=== PATIENT | male | born 1950 | race Caucasian/White ===

== ENCOUNTER 2018-09-24 11:50 | Emergency (ER) | payer OTHER ==
[~2018-09-24] VITALS: Ht 182.9 cm; Wt 77.0 kg
[2018-09-24] VITALS (12 sets, daily range): BP systolic 131–163; BP diastolic 66–90; PULSE 70–80; RESP 14–21; Ht 182.9 cm; Wt 77.0 kg
[~2018-09-24 11:50] MED LIST: HEPARIN 25000 UNIT/250 ML ONE
[2018-09-24] MEDS ORDERED: ASPIRIN 81 MG TAB PO STA (11:53)
[2018-09-24] MEDS ORDERED: SOD CHLORIDE 0.9% 1,000 ML IV STA (11:53)
[2018-09-24] MEDS ORDERED: ALTEPLASE 100 MG INJ IV* ONE ×2 (12:00)
[2018-09-24] MEDS ORDERED: SOD CHLORIDE 0.9% 100 ML ONE (12:00)
[2018-09-24] MEDS ORDERED: IOHEXOL 300MG/ML 150 ML BTL ONE (12:00)
[2018-09-24] MEDS ORDERED: SOD CHLORIDE 0.9% 50 ML IV ONE (12:00)
[2018-09-24] MEDS ORDERED: ALTEPLASE (tPA) 1 MG/ML BOLUS SYG IV* ONE ×2 (12:00)
--- NOTE | 2018-09-24 12:31 | STROKE ---
Date/Time of Note Date/Time of Note DATE: 09/24/18 TIME: 15:25 Patient Information General Arrival Date Age 68 Gender male Weight NIH Stroke Scale NIH Stroke Scale Date/Time Recorded DATE: 09/24/18 TIME: 15:25 Submitted By Flo Donnelly t-PA Imaging Review Date/Time Imaging Reviewed DATE: 09/24/18 TIME: 15:25 t-PA Administration Weight Recommedation submitted by Flo Donnelly Recommendations Recommendation last spoke to the patient and he was speaking normally at 10:30. subsequently became acutely aphasic. has not had any recent surgeries, is not on anticoagulation, and has no bleeding problems. I recommended to the patient's that he receive tPA. I explained that tPA improves chances for a full recovery and does not guarantee full recovery. I also stated that some who do not receive tPA still enjoy a full recovery. I further stated a 6% risk of symptomatic hemorrhage with tPA. The patient's consented for IV tPA at 12:20. FLO DONNELLY MD Sep 24, 2018 12:30
--- NOTE | 2018-09-24 12:37 | ERD ---
ER Documentation Chief Complaint Chief Complaint pt became verbal incomprehensible around [address] a med ctr HPI This is a 68-year-old man brought in by EMS for generalized confusion and aphasia beginning about an hour and a half prior to arrival 10:30 AM. states she last spoke to him at about 10:30 AM and noticed a change in speech and then difficulty speaking. She was driving him to the hospital for evaluation but got pulled over by tobacco blender and tobacco blender called EMS who transported him here. Patient has had no recent fevers or chills, no recent complaints of headache, no blurry vision, no vomiting or diarrhea, no complaints of chest pain or shortness of breath. Patient has had no history of GI bleeding or recent surgeries, no history of stroke, no new meds. ROS All systems reviewed and are negative except as per history of present illness. Medications Home Meds Reported Medications Albuterol Sulfate* (Ventolin HFA*) 18 Gm Hfa.aer.ad, 2 PUFF INHALATION Q4H, #1 INHALER 09/24/18 Ciclesonide (Alvesco) 160 Mcg/Act - 6.1 Gm - 60 Act Hfa.aer.ad, 160 MCG INHALATION BID, #1 INHALER 09/24/18 Omeprazole* (Omeprazole*) 20 Mg Capsule.dr, 20 MG PO DAILY, #30 CAP 09/24/18 Colchicine* (Colcrys*) 0.6 Mg Tablet, 0.6 MG PO DAILY PRN for GOUT, TAB 09/24/18 Allopurinol* (Allopurinol*) 100 Mg Tablet, 100 MG PO BID, TAB 09/24/18 Levothyroxine Sodium* (Levoxyl*) 25 Mcg Tablet, 25 MCG PO BEFORE BREAKFAST, #30 TAB 09/24/18 Allergies Allergies: Coded Allergies: No Known Allergy (Unverified , 09/24/18) PMhx/Soc Hypothyroidism FmHx Family History: No diabetes Physical Exam Vitals Vital Signs Date Temp Pulse Resp B/P (MAP) Pulse Ox O2 O2 Flow FiO2 Time Delivery Rate 09/24/18 78 17 162/90 100 Room Air 13:00 (114) 09/24/18 98.2 76 18 163/86 100 Room Air 12:45 (111) 09/24/18 80 15 157/89 100 Room Air 12:35 (111) 09/24/18 86 17 154/87 100 Room Air 12:20 (109) 09/24/18 82 17 176/79 100 Room Air 12:15 (111) 09/24/18 97.1 81 18 178/76 98 11:50 (110) Physical Exam GENERAL: Well-developed, well-nourished, well-hydrated, agitated, afebrile HEENT: Moist mucous membranes, pink conjunctiva, no cervical spine tenderness or step-off deformities, no goiter, no jaundice or icterus, extraocular movements intact without pain. No submandibular induration, and no pharyngeal erythema NEURO: Patient appears confused, moving all extremities, pupils equal round reactive to light, no facial asymmetry but patient is aphasic and unable to follow commands or speak CARDIAC: Regular rate and rhythm, no murmurs rubs or gallops LUNGS: Clear bilaterally no wheezing crackles or stridor ABDOMEN: Soft nontender, no guarding, no rigidity, no rebound, no psoas sign no obturator sign. Normoactive bowel sounds SKIN: Warm and dry to touch, no abrasions, contusions, or hematomas, no lacerations, no ecchymosis, no target lesions, and without ulcers EXTREMITIES: No clubbing cyanosis or edema, calves are bilaterally symmetrical, no Homans sign, no popliteal cord sign. Distal pulses equal and bilateral PSYCH: Agitated Result Diagram: 09/24/18 1203 09/24/18 1203 Results 24 hrs Laboratory Tests Test 09/24/18 12:02 09/24/18 12:03 09/24/18 12:36 Hemoglobin A1c 6.0 % White Blood Count 7.5 10^3/ul Red Blood Count 5.50 10^6/ul Hemoglobin 15.4 g/dl Hematocrit 46.0 % Mean Corpuscular Volume 83.6 fl Mean Corpuscular Hemoglobin 28.0 pg Mean Corpuscular 33.5 g/dl Hemoglobin Concent Red Cell Distribution Width 13.2 % Platelet Count 210 10^3/UL Mean Platelet Volume 9.5 fl Immature Granulocytes % 0.300 % Neutrophils % 54.1 % Lymphocytes % 36.5 % Monocytes % 7.1 % Eosinophils % 1.3 % Basophils % 0.7 % Nucleated Red Blood Cells % 0.0 /100WBC Immature Granulocytes # 0.020 10^3/ul Neutrophils # 4.0 10^3/ul Lymphocytes # 2.7 10^3/ul Monocytes # 0.5 10^3/ul Eosinophils # 0.1 10^3/ul Basophils # 0.1 10^3/ul Nucleated Red Blood Cells # 0.0 10^3/ul Prothrombin Time 13.5 Sec Prothrombin Time Ratio 1.1 INR International Normalized Ratio 1.02 Activated Partial Thromboplast 31.5 Sec Time Sodium Level 140 mmol/L Potassium Level 4.3 mmol/L Chloride Level 106 mmol/L Carbon Dioxide Level 22 mmol/L Anion Gap 12 Blood Urea Nitrogen 17 mg/dl Creatinine 1.25 mg/dl Est Glomerular Filtrat Rate mL/min 57 mL/min Glucose Level 141 mg/dl Calcium Level 10.0 mg/dl Total Bilirubin 0.6 mg/dl Direct Bilirubin 0.00 mg/dl Indirect Bilirubin 0.6 mg/dl Aspartate Amino Transf (AST/SGOT) 20 IU/L Alanine 17 IU/L Aminotransferase (ALT/SGPT) Alkaline Phosphatase 74 IU/L Creatine Kinase 51 IU/L Creatine Kinase Index 1.2 Creatinine Kinase MB (Mass) 0.63 ng/ml Troponin I < 0.012 ng/ml Total Protein 8.9 g/dl Albumin 4.6 g/dl Globulin 4.30 g/dl Albumin/Globulin Ratio 1.06 Triglycerides Level 182 mg/dl Cholesterol Level 204 mg/dl LDL Cholesterol, Calculated 147 mg/dl HDL Cholesterol 21 mg/dl Cholesterol/HDL Ratio 9.7 RATIO Ethyl Alcohol Level < 10.0 mg/dl Bedside Glucose 137 mg/dL Current Medications Medications Dose Sig/Lexie Start Time Status Last (Trade) Ordered Route PRN Stop Time Admin Dose Reason Admin Sodium 1,000 ml @ Q1H STAT 09/24/18 DC Chloride 1,000 mls/hr IV 11:53 09/24/18 12:52 Aspirin 162 mg ONCE STAT 09/24/18 DC (Aspirin) PO 11:53 09/24/18 11:55 Alteplase, 6.3 mg BOLUS OVER 1 09/24/18 DC Recombinant MIN ONCE 12:00 (Activase) IV* 09/24/18 12:01 Alteplase, 56.7 mg ISCHEMIC 09/24/18 DC Recombinant STROKE ONCE 12:00 (Activase) IV* 09/24/18 12:01 Sodium 50 ml @ 0 FLUSH AFTER 09/24/18 DC Chloride mls/hr TPA ONCE IV 12:00 09/24/18 12:01 IV Flush 10 ml STK-MED 09/24/18 DC 09/24/18 (NS 10 ml) ONCE .ROUTE 12:00 12:25 09/24/18 12:01 Sodium 100 ml @ ud STK-MED 09/24/18 DC 09/24/18 Chloride ONCE .ROUTE 12:00 12:25 09/24/18 12:01 Iohexol 150 ml STK-MED 09/24/18 DC 09/24/18 (Omnipaque ONCE .ROUTE 12:00 12:25 300mg/ ml) 09/24/18 12:01 Procedures/MDM IV line was established patient was placed on quality assurance monitor body rhythm strip revealed a sinus rhythm at about 80 bpm with upright P and T waves. Patient was afebrile Sugar was normal. EKG performed, read by me: 81 bpm, normal sinus rhythm, n ormal axis, no acute ST segment changes, narrow QRS complex, with good R-wave progression in precordial leads. CT scan of the brain was negative for acute bleed mass or shift. Tele-neurology was immediately contacted and after speaking to the regarding the risks and benefits of TPA patient's at length, the finally agreed and TPA was administered. CBC and electrolytes are normal, liver function tests were normal, troponin was negative. Also administered 1 L normal saline IV and aspirin 162 mg p.o. for neuro protective measures. Chest X-ray 1V Interpreted by me: Soft Tissue: No acute abnormalities Bones: No acute abnormalities Mediastinum/Cardiac Silhouette/Lungs: No acute abnormalities CTA of the brain and neck was performed no large vessel occlusion was noted. Critical Care: Time: 45 minutes, this was time separate from other billable procedures. Treatments/Evaluations: Close monitoring and treatment of unstable vital signs, cardiorespiratory, and neurologic status, while maintaining tight balance of fluid, respiratory, and cardiac interventions. Patient will be transported to [facility] for further intervention and management. [facility] authorization number is [id number]. Dr. Paul David Diagnosis: Primary Impression: Acute ischemic stroke Condition: DIEUDONNE Caceres MD Sep 24, 2018 12:37
[2018-09-24] MEDS ORDERED: COLC0.6T6 PO (13:03)
[2018-09-24] MEDS ORDERED: ALLO100T PO (13:03)
[2018-09-24] MEDS ORDERED: LEVO25TA50 PO (13:03)
[2018-09-24] MEDS ORDERED: CICL6.1H4 INHALATION (13:04)
[2018-09-24] MEDS ORDERED: OMEP20CA16 PO (13:04)
[2018-09-24] MEDS ORDERED: ALBU18HF INHALATION (13:05)
== END 2018-09-24 15:15 | disposition short-term general hospital (02) ==
LOC: E/R 11:50
DX: I63.9 Cerebral infarction, unspecified (principal); R40.2142 Coma scale, eyes open, spontaneous, at arrival to emergency department; R40.2242 Coma scale, best verbal response, confused conversation, at arrival to emergency department; R40.2362 Coma scale, best motor response, obeys commands, at arrival to emergency department
CPT/HCPCS: 37195; 70450; 70496; 70498; 71045; 80053; 80061; 80307; 82550; 82553; 82962; 83036; 84484; 85025; 85610; 85730; 86850; 86900; 86901; 93005; J1644; J2997; J7030; Q9967; 36415